=== PATIENT | male | born 1980 | race Caucasian/White ===

== ENCOUNTER 2023-08-27 13:34 | Emergency (ER) | payer OTHER, SELFPAY ==
[2023-08-27 13:35] VITALS: BP 159/101
[2023-08-27 15:08] VITALS: BMI 40.5
[2023-08-27 15:13] VITALS: BP 136/82
--- NOTE | 2023-08-27 15:31 | ED.GENMED ---
History of Present Illness
General
Chief Complaint: Blood Pressure Problem
Source: patient
Exam Limitations: none
Time Seen by Provider: 08/27/23 14:58
Nursing documentation reviewed up to this point in time: agreed with
Travel History
Have you had any contact with someone who has COVID-19?: No
Do you have any symptoms of coronavirus? Fever > 100 degrees, chills, cough, shortness of breath, sore throat, loss of taste or smell, muscle aches, or headache?: No
History of Present Illness
History of Present Illness:
43-year-old male with past medical history hypertension, hypothyroidism who presents to the emergency room for evaluation of left upper lip tingling. Patient reports onset of symptoms 3 days ago and they have been constant since that time although
the sensation seems to wax and wane. No clear triggering or relieving factors noted. He reports he has had associated increased blood pressure over the past few days. He says that he saw his primary doctor who referred him to the emergency
department to be assessed. He denies any headache. Denies any weakness in the face or the extremities. No numbness or weakness in the extremities. Denies any pain in his neck. No change in his vision or speech. He denies any other complaints
including chest pain, shortness of breath, abdominal pain.
Past History
Past History
ED Past Medical History: Other (Chronic back pain, tension headaches, hypothyroidism, previous Lyme's disease treated)
ED Past Surgical History: None
PSI?: No
Social History
Tobacco: Former smoker
Alcohol: None
Personal: Single
Living: with family
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
Family History
Family History: Hypertension and Early CAD
Review of Systems
Review of Systems
All Other Systems: ROS reviewed and negative except as documented in HPI and ROS
Constitutional: Denies fever or chills
EENT: Denies sore throat or runny nose
Respiratory: Denies cough or trouble breathing
Cardiac: Denies chest pain or palpitations
ABD/GI: Denies abdominal pain, nausea or vomiting
: Denies flank pain
Musculoskeletal: Denies neck pain or back pain
Neurological: Reports other (Left upper lip tingling/paresthesia); Denies dizzy, headache, weakness or numbness
Phy Exam
Physical Exam
Physical Exam:
General: Awake, alert; no acute distress
Head: Normocephalic, atraumatic
Eyes: Conjunctiva normal, EOMI, pupils equal round reactive to light bilaterally, visual delgadillo intact
Throat: Airway intact, handling secretions
Neck: Trachea midline, supple without meningismus
Lungs: Clear to auscultation bilaterally, no wheezing, rales, rhonchi
Heart: Regular rate and rhythm, no murmurs, gallops, or rubs
Abd: Soft, non distended, nontender
Neuro: Cranial nerves intact 2 through 12�notably he has no objective sensory deficit in the face; speech is fluid with no dysarthria or aphasia; no limb ataxia; motor and sensory function is intact and symmetric proximally and distally in the upper
and lower extremities
Skin: no rash
Extremities: No edema in extremities, warm and well-perfused
Scores
NIH Stroke Score
Level of Consciousness: 0 - Alert
LOC Questions: 0-Answers both correctly
LOC Commands: 0-Performs both correctly
Best Horizontal Gaze: 0-Normal
Visual Delgadillo: 0=Normal, no visual loss
Facial Palsy: 0=Normal, symmetrical
Motor - Right Arm: 0=No drift 10 seconds
Motor - Left Arm: 0=No drift 10 seconds
Motor - Right Le-No drift 5 seconds
Motor - Left Le-No drift 5 seconds
Limb Ataxia: 0-Absent
Sensation: 0-Normal
Best Language: 0-No aphasia
Dysarthria: 0-Normal
Extinction and Inattention: 0-No abnormality
Total Score:: 0
Heart Failure Risk
Heart Failure Risk Score: Not Applicable
Heart Score for Chest Pain Patients
STEMI patient?: Not applicable
Withdrawal Assessment of Alcohol
Withdrawal Assessment Completed?: Not applicable
Course
Orders/Labs/Results
Orders:
Orders
08/27/23 14:59
Electrocardiogram (*1) Urgent
Reason for Study: Hypertension, Benign
EKG- Treatment ONCE
08/27/23 15:15
Complete Blood Count/With Diff Urgent
Comprehensive Metabolic Panel Urgent
Free T4 Urgent
TSH Reflex To Free T4 Urgent
Comment: ADD ON
08/27/23 15:28
CT Head W/o Iv Contrast Urgent
Comment:
Reason For Exam: left facial numbness
08/27/23 15:30
Add On- LAB Urgent
Tests Added?: TSH reflex to free T4
Abnormal Lab Results
08/27/23
15:15
Sodium 128 L mmol/L
(135-145)
TSH (Reflex) 4.85 H uIU/ml
(0.47-4.68)
08/27/23 15:15
08/27/23 15:15
Vital Signs
Initial and Last Documented VS:
Initial Vital Signs
Temp Pulse Resp BP Pulse Ox
36.7 C 76 18 159/101 99
08/27/23 13:35 08/27/23 13:35 08/27/23 13:35 08/27/23 13:35 08/27/23 13:35
Last Documented Vital Signs
Temp Pulse Resp BP Pulse Ox
36.7 C 75 25 135/86 94
08/27/23 13:35 08/27/23 16:45 08/27/23 16:45 08/27/23 16:30 08/27/23 16:45
MDM/Problems Addressed
Differential Diagnosis Includes:
Peripheral neuropathy, trigeminal neuralgia, angioedema, electrolyte derangement, less likely TIA/CVA based on distribution of symptoms
MDM/Problems Addressed:
43-year-old male presents for rather localized left upper lip/facial paresthesias over the past 3 days waxing waning intensity. No other associated neurologic signs or symptoms. He has been hypertensive had blood pressure medication increased by
his primary doctor but was also referred to the emergency room to be assessed. He was hypertensive in triage normalized by my assessment. Rest of vitals normal. Exam as above�he notably has no neurologic deficits on exam including no objective
sensory deficit in the area of concern. Labs sent off including CBC and CMP. Will check thyroid studies. He says that his primary doctor referred him to ED for CT head with concern for CVA/TIA�his clinical presentation is really inconsistent with
TIA/CVA but will check CT head in abundance of caution. Monitor closely reassess after the above.
Chronic conditions affecting care:
Hypertension
Acute Exacerbation and/or Progression of Chronic Illness:
Acutely hypertensive
*Radiology
Radiology exam reviewed: radiology read reviewed
*Pulse Oximetry
Patient hypoxic: no
*EKG
Interpreted by ED Provider?: Yes
Heart Rate: 66
Rate: normal
Rhythm: sinus
[place]: normal axis
Interval: normal interval
QRS Pattern: normal QRS
Ischemia: no ischemia
*Critical Care Note
Total Time (30-74mins, 75-104mins- exclusive of procedures): Not Applicable
Data Reviewed
Source: patient
ED Attending Note
-
Portions of this chart may have been created with voice recognition software.� Occasional wrong word or��sound alike� substitutions may have occurred due to the inherent limitations of voice recognition software.
Discharge Plan
Departure
Patient with high blood pressure during this ER visit?: Yes
Discharge Problem:
Facial paresthesia
Instructions: Paresthesia (DC)
Prescriptions:
No Action
levothyroxine 175 MCG tablet
175 mcg PO DAILY
valsartan 160 MG tablet
160 mg PO DAILY
docosahexaenoic acid-epa 1 CAP capsule
1 cap PO BID
prednisone 50 mg tablet
50 mg PO DAILY Qty: 4 0RF
Referrals:
Brandan Simmons MD [Active] - Call in 1-3 days for appt (Neurology)
Nette Taylor CRNP [Family Provider] -
Activity Restrictions/Additional Instructions:
Thank you for visiting the Emergency Department at [facility].
1. Please schedule a follow up appointment as directed. Call first thing tomorrow morning to make an appointment.
2. If indicated, please take your medications as instructed and indicated on discharge paperwork.
3. If any of your symptoms do not improve, or persist, or become more severe within 6-12 hours, please return to the emergency department for further care.
4. Please return to the emergency department if you develop a headache, neck pain/stiffness, fever greater than 100.4F, chest pain, shortness of breath, persistent nausea, vomiting, slurred speech, difficulty walking, numbness/tingling, weakness,
signs of infection or any other symptoms that are worrisome to you.
Please call [phone] if you have any questions.
Interventions
Interventions:
*Risk Screen - Suicide Last Done: 08/27/23 15:08
*General Assessment Last Done: 08/27/23 15:08
*Neglect/Abuse Screening Last Done: 08/27/23 15:08
ED- Fall Risk Assessment Last Done: 08/27/23 15:08
*ED COVID-19 Vaccine History Last Done: 08/27/23 15:00
ED- Cardiac Assessment Last Done: 08/27/23 15:13
ED- Neurological Assessment Last Done: 08/27/23 15:08
ED- Pulmonary Assessment Last Done: 08/27/23 15:08
[2023-08-27 15:42] LABS: % Basophils 0.2 % (0-2); % Immature Granulocytes 0.2 % (0-0.5); % Lymphocytes 26.8 % (20.5-51.1); % Monocytes 6.7 % (1.7-9.3); % Neutrophils 64.1 % (42.2-75.2); Absolute Eosinophils 0.2 10^3/uL (0-0.7); Absolute Lymphocytes 2.3 10^3/uL (1.2-3.4); Absolute Monocytes 0.6 10^3/uL (0.1-0.6); Absolute Neutrophils 5.5 10^3/uL (1.4-6.5); Hemoglobin 14.5 g/dL (13.0-18.0); Mean Corp Hgb Conc. 35.4 g/dL (33.0-37.0); Mean Corpuscular Hgb 30.1 pg (27.0-31.0); Mean Corpuscular Volume 85.2 fL (80.0-94.0); Mean Platelet Volume 9.8 fL (7.4-10.4); Nucleated Red Blood Cells % 0 % (-); Platelet Count 186 10^3/uL (130-400); Red Blood Cell Count 4.81 10^6/uL (4.70-6.10); Red Cell Dist. Width 12.1 % (11.5-14.5); White Blood Cell Count 8.7 10^3/uL (4.8-10.8)
[2023-08-27 15:49] LABS: ALT (SGPT) 15 U/L (0-50); AST (SGOT) 26 U/L (17-59); Albumin 4.6 g/dl (3.5-5.0); Alkaline Phosphatase 70 U/L (38-126); Blood Urea Nitrogen 15 mg/dl (9-20); Calcium 9.5 mg/dl (8.4-10.2); Carbon Dioxide 28 mmol/L (22-30); Chloride 103 mmol/L (98-107); Estimated Creatinine Clearance 109 ml/min; Glucose 90 mg/dl (70-99); Potassium 4.1 mmol/L (3.5-5.1); Sodium 128 mmol/L (135-145); Total Bilirubin 0.4 mg/dl (0.2-1.3); Total Protein 7.6 g/dl (6.3-8.2); eGFR > 60.00
[2023-08-27 16:00] VITALS: BP 117/64
[2023-08-27 16:30] VITALS: BP 135/86
[2023-08-27 16:42] LABS: TSH Reflex To Free T4 4.85 uIU/ml (0.47-4.68)
[2023-08-27 17:00] VITALS: BP 135/76
[2023-08-27 17:12] LABS: Free T4 1.05 ng/dl (0.78-2.19)
[2023-08-27 18:00] VITALS: BP 127/79
[2023-08-27] MEDS: NSS 1000 IV (18:13)
== END 2023-08-27 19:13 | disposition home or self-care (01) ==
LOC: EMR 13:34
PROVIDERS: EMERGENCY PHYSICIAN Emergency Medicine; FAMILY PHYSICIAN Nurse Practitioner Adult Health
DX: R20.2 Paresthesia of skin (principal); I10 Essential (primary) hypertension; E03.9 Hypothyroidism, unspecified; G89.29 Other chronic pain; Z82.49 Family history of ischemic heart disease and other diseases of the circulatory system; Z87.891 Personal history of nicotine dependence
CPT/HCPCS: 99284; 96360; 70450; 80053; 84439; 84443; 85025; 93005

== ENCOUNTER 2023-12-11 05:09 | Emergency (ER) | payer OTHER, SELFPAY ==
[2023-12-11 05:11] VITALS: BP 155/104
[2023-12-11 05:28] VITALS: BMI 40.1
[2023-12-11 05:50] LABS: % Basophils 0.5 % (0-2); % Eosinophils 2.8 % (0-6); % Immature Granulocytes 0.3 % (0-0.5); % Lymphocytes 28.9 % (20.5-51.1); % Monocytes 8.3 % (1.7-9.3); % Neutrophils 59.2 % (42.2-75.2); Absolute Eosinophils 0.2 10^3/uL (0-0.7); Absolute Lymphocytes 1.9 10^3/uL (1.2-3.4); Absolute Monocytes 0.5 10^3/uL (0.1-0.6); Absolute Neutrophils 3.9 10^3/uL (1.4-6.5); Hemoglobin 14.1 g/dL (13.0-18.0); Mean Corp Hgb Conc. 36.2 g/dL (33.0-37.0); Mean Corpuscular Hgb 29.6 pg (27.0-31.0); Mean Corpuscular Volume 81.9 fL (80.0-94.0); Mean Platelet Volume 9.2 fL (7.4-10.4); Nucleated Red Blood Cells % 0 % (-); Platelet Count 174 10^3/uL (130-400); Red Blood Cell Count 4.76 10^6/uL (4.70-6.10); Red Cell Dist. Width 11.9 % (11.5-14.5); White Blood Cell Count 6.5 10^3/uL (4.8-10.8)
[2023-12-11 06:18] LABS: Troponin I < 0.012 ng/ml
[2023-12-11 06:24] LABS: ALT (SGPT) 22 U/L (0-50); AST (SGOT) 32 U/L (17-59); Albumin 4.4 g/dl (3.5-5.0); Alkaline Phosphatase 68 U/L (38-126); Blood Urea Nitrogen 14 mg/dl (9-20); Calcium 9.5 mg/dl (8.4-10.2); Carbon Dioxide 25 mmol/L (22-30); Chloride 106 mmol/L (98-107); Estimated Creatinine Clearance > 125 ml/min; Glucose 97 mg/dl (70-99); Potassium 4.2 mmol/L (3.5-5.1); Sodium 139 mmol/L (135-145); Total Bilirubin 0.5 mg/dl (0.2-1.3); Total Protein 7.4 g/dl (6.3-8.2); eGFR > 60.00
--- NOTE | 2023-12-11 06:40 | ED.GENMED ---
History of Present Illness
General
Chief Complaint: Cardiac Symptoms
Source: patient
Time Seen by Provider: 12/11/23 06:34
Travel History
Have you had any contact with someone who has COVID-19?: No
Do you have any symptoms of coronavirus? Fever > 100 degrees, chills, cough, shortness of breath, sore throat, loss of taste or smell, muscle aches, or headache?: No
History of Present Illness
History of Present Illness:
43-year-old male presents to the emergency room complaining of a abnormal sensation in his chest. Patient was brushing his teeth around 4 AM when he had a sensation that there was a wet shirt stuck to his chest. He states this is the only way he
can describe the sensation. It did not radiate. He did not have associated shortness of breath, diaphoresis or any crushing chest pain or pressure on his chest. The episode lasted for 45 minutes. He endorses increasing exercise recently
including some weightlifting. He runs a mile and a half on the treadmill and also uses an elliptical. He has no chest discomfort or difficulty while exercising. The sensation he had earlier is gone. Patient endorses anxiety. He states he had a
panic attack when thinking about the sensation he had in his chest.
Past History
Past History
ED Past Medical History: Other (Chronic back pain, tension headaches, hypothyroidism, previous Lyme's disease treated)
ED Past Surgical History: None
PSI?: No
Social History
Tobacco: Former smoker
Alcohol: None
Personal: Single
Living: with family
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
Family History
Family History: Hypertension and Early CAD
Phy Exam
Physical Exam
Physical Exam:
General: Awake, Alert, Oriented X3. No acute distress. High BMI
Vitals: unremarkable
Head: Atraumatic
Eyes: Pupils equal, EOMI
Throat: Airway intact, no exudates
Neck: Trachea midline
Lungs: Clear and equal b/l
Heart: Regular rate, no murmurs
Abd: Soft, Nontender, No pulsatile mass
Neuro: Nonfocal
Skin: Warm, dry, no rash
Extremities: pulses equal b/l, no edema
Course
Orders/Labs/Results
Orders:
Orders
12/11/23 05:13
Electrocardiogram (*1) Urgent
Reason for Study: Chest Pain
EKG- Treatment ONCE
12/11/23 05:43
CMP [Comprehensive Metabolic Panel] Urgent
Complete Blood Count/With Diff Urgent
Troponin I Urgent
12/11/23 05:43
12/11/23 05:43
Vital Signs
Initial and Last Documented VS:
Initial Vital Signs
Temp Pulse Resp BP Pulse Ox
97.8 F 70 22 155/104 97
12/11/23 05:11 12/11/23 05:11 12/11/23 05:11 12/11/23 05:11 12/11/23 05:11
Last Documented Vital Signs
Temp Pulse Resp BP Pulse Ox
97.8 F 70 22 155/104 97
12/11/23 05:11 12/11/23 05:11 12/11/23 05:11 12/11/23 05:11 12/11/23 05:11
MDM/Problems Addressed
Differential Diagnosis Includes:
Costochondritis, ACS, reflux, anxiety
MDM/Problems Addressed:
Patient presents with a vague nonspecific chest discomfort. EKG is normal. First troponin is normal. The description of his discomfort does not really sound cardiac in nature. Patient able to perform exercise without any chest discomfort.
Suspect noncardiac chest pain. Patient stable for discharge home.
*Pulse Oximetry
Patient hypoxic: no
*EKG
Interpreted by ED Provider?: Yes
Interpretation: normal
Heart Rate: 71
Rate: normal
Rhythm: sinus
[place]: normal axis
Interval: normal interval
QRS Pattern: normal QRS
Ischemia: no ischemia
*[employer] Supervisor Interpretation
Rate: normal
Interpretation: normal
Rhythm: sinus
*Critical Care Note
Total Time (30-74mins, 75-104mins- exclusive of procedures): Not Applicable
ED Attending Note
-
Portions of this chart may have been created with voice recognition software.� Occasional wrong word or��sound alike� substitutions may have occurred due to the inherent limitations of voice recognition software.
Discharge Plan
Departure
Patient Disposition: Home (Routine Discharge)
Date of Disposition: 12/11/23
Time of Disposition: 06:45
Patient with high blood pressure during this ER visit?: Yes
Condition: Good
Discharge Problem:
Chest pain, non-cardiac
Instructions: Chest Pain PCP Follow Up, BLOOD PRESSURE
Prescriptions:
No Action
valsartan 160 MG tablet
160 mg PO DAILY
levothyroxine 200 mcg Tablet
200 mcg PO DAILY
pantoprazole 40 mg Tablet,Delayed Release (Dr/Ec)
40 mg PO DAILY
hydrochlorothiazide 12.5 mg Capsule
12.5 mg PO DAILY
Referrals:
Clay Gerard DO [Family Provider] -
Interventions
Interventions:
*Risk Screen - Suicide Last Done: 12/11/23 05:11
*General Assessment Last Done: 12/11/23 07:00
*Neglect/Abuse Screening Last Done: 12/11/23 05:11
ED- Fall Risk Assessment Last Done: 12/11/23 05:28
*Nursing Disposition Last Done: 12/11/23 07:00
ED- Cardiac Assessment Last Done: 12/11/23 05:28
ED- Pulmonary Assessment Last Done: 12/11/23 05:28
Discharge Date and Time
Discharge Date/Time: 12/11/23 07:00
Print Language: SLOVENIAN
== END 2023-12-11 07:00 | disposition home or self-care (01) ==
LOC: EMR 05:09
PROVIDERS: Student in an Organized Health Care Education/Training Program; EMERGENCY PHYSICIAN Emergency Medicine; FAMILY PHYSICIAN Family Medicine
DX: R07.89 Other chest pain (principal); E03.9 Hypothyroidism, unspecified; F41.0 Panic disorder [episodic paroxysmal anxiety]; G89.29 Other chronic pain; Z82.49 Family history of ischemic heart disease and other diseases of the circulatory system; Z87.891 Personal history of nicotine dependence
CPT/HCPCS: 99283; 80053; 84484; 85025; 93005

== ENCOUNTER 2024-02-22 11:46 | Emergency (ER) | payer OTHER, SELFPAY ==
[2024-02-22 11:53] VITALS: BP 152/99
[2024-02-22 12:03] VITALS: BMI 39.7
[2024-02-22 12:09] VITALS: BP 142/85
--- NOTE | 2024-02-22 12:25 | ED.GENMED ---
History of Present Illness
General
Chief Complaint: Musculo-Skeletal Complaint
Source: patient
Time Seen by Provider: 02/22/24 12:10
History of Present Illness
History of Present Illness:
44yoM with a history of hypertension and hypothyroidism presenting for evaluation of numbness. Patient started to have pressure in his neck and left hand tingling about 1-2 months ago. He was seen by his PCP and had cervical spine x-rays on 02/06/24
which were normal. He underwent EMG testing and was diagnosed with carpal tunnel. He was also told that he had a pinched nerve in his neck. Over the past week, he has had 3 separate episodes of numbness. He reports having numbness throughout his
entire head that lasts about a minute before resolving. Nothing seems to trigger these symptoms. He had an episode again this morning so he decided to come to the ED. He has an appointment for an MRI brain w/wo contrast and MRI cervical spine
scheduled in March. He admits to being under a lot of stress recently.
Past History
Past History
ED Past Medical History: Other (Chronic back pain, tension headaches, hypothyroidism, previous Lyme's disease treated)
ED Past Surgical History: None
PSI?: No
Social History
Tobacco: Former smoker
Alcohol: None
Personal: Single
Living: with family
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
Family History
Family History: Hypertension and Early CAD
Phy Exam
General Physical Exam
General Presentation: well appearing and no apparent distress
General age: appears stated age
General Skin: warm and dry
General Habitus: normal
General Mental: alert
Eye Exam
Eye Exam: PERRL
Cardiovascular Exam
Cardiovascular Exam: regular rate/rhythm, no edema and no murmur
Pulmonary Exam
Pulmonary Exam: lungs clear, no respiratory distress, no crackles and no wheezing
Neurological Exam
Neurological Exam: alert and no motor deficits
[place] Coma Scale
Eye Opening: Spontaneous
Verbal Response: Oriented
Motor Response: Obeys Commands
GCS Total Score: 15
Skin Exam
Skin Exam: normal color and warm/dry
Psychiatric Exam
Psychiatric Exam: normal mood/affect
Course
Orders/Labs/Results
Orders:
Orders
02/22/24 12:26
Cardiac Monitoring- Treatment ONCE
02/22/24 12:27
Electrocardiogram (*1) Urgent
Reason for Study: Fatigue / Weakness
CT Head W/o Iv Contrast Urgent
Comment:
Reason For Exam: Intermittent numbness of head
EKG- Treatment ONCE
02/22/24 12:42
Complete Blood Count/With Diff Urgent
Comprehensive Metabolic Panel Urgent
Troponin I Urgent
Abnormal Lab Results
02/22/24
12:42
RBC 4.67 L 10^6/uL
(4.70-6.10)
Hct 38.6 L %
(39.0-52.0)
Absolute Monos (auto) 0.7 H 10^3/uL
(0.1-0.6)
02/22/24 12:42
02/22/24 12:42
Vital Signs
Initial and Last Documented VS:
Initial Vital Signs
Temp Pulse Resp BP Pulse Ox
98.0 F 79 16 152/99 98
02/22/24 11:53 02/22/24 11:53 02/22/24 11:53 02/22/24 11:53 02/22/24 11:53
Last Documented Vital Signs
Temp Pulse Resp BP Pulse Ox
98.0 F 72 20 136/55 96
02/22/24 11:53 02/22/24 13:45 02/22/24 13:15 02/22/24 13:01 02/22/24 13:45
MDM/Problems Addressed
Differential Diagnosis Includes:
44yoM here with intermittent episodes of head numbness over the past week. Also having L arm paresthesias for several months and has underwent outpatient workup with EMG. No current symptoms. He is afebrile and hemodynamically stable. He is well
appearing in no distress. Exam is reassuring. Differential diagnosis includes but is not limited to: electrolyte abnormality, cervical radiculopathy, doubt CVA
Initial ED plan: Check cardiac labs, EKG, and CT head.
*EKG
Interpreted by ED Provider?: Yes
EKG Intrepretation Date: 02/22/24
Heart Rate: 65
Rate: normal
Rhythm: sinus
[place]: normal axis
Interval: normal interval
QRS Pattern: normal QRS
Ischemia: no ischemia
*Critical Care Note
Total Time (30-74mins, 75-104mins- exclusive of procedures): Not Applicable
Update Note
Update Note:
EKG shows NSR without ischemic changes or ectopy. Troponin WNL. Remainder of labs unremarkable including normal electrolytes, renal function, and glucose. CT head is negative for acute findings. No indication for hospitalization. He has an appt in
March for an MRI brain/cervical spine. He was advised to f/u closely with his PCP. ED return precautions discussed. He was discharged in stable condition.
ED Attending Note
-
Portions of this chart may have been created with voice recognition software.� Occasional wrong word or��sound alike� substitutions may have occurred due to the inherent limitations of voice recognition software.
Discharge Plan
Departure
Patient Disposition: Home (Routine Discharge)
Date of Disposition: 02/22/24
Time of Disposition: 13:56
Patient with high blood pressure during this ER visit?: Yes
Discharge Problem:
Paresthesia
Instructions: Paresthesia (DC)
Prescriptions:
No Action
valsartan 160 MG tablet
160 mg PO DAILY
levothyroxine 200 mcg Tablet
200 mcg PO DAILY
pantoprazole 40 mg Tablet,Delayed Release (Dr/Ec)
40 mg PO DAILY
hydrochlorothiazide 12.5 mg Capsule
12.5 mg PO DAILY
Referrals:
Clay Gerard DO [Family Provider] -
Activity Restrictions/Additional Instructions:
Please follow-up with your family doctor. Return to the ER with any new or worsening symptoms.
Interventions
Interventions:
*Risk Screen - Suicide Last Done: 02/22/24 12:03
*General Assessment Last Done: 02/22/24 12:03
*Neglect/Abuse Screening Last Done: 02/22/24 12:03
*Nursing Disposition Last Done: 02/22/24 14:09
ED-Musculoskeletal Assessment Last Done: 02/22/24 12:06
Discharge Date and Time
Discharge Date/Time: 02/22/24 14:09
Print Language: ARGENTINE
[2024-02-22 13:01] VITALS: BP 136/55
[2024-02-22 13:02] LABS: % Basophils 0.4 % (0-2); % Eosinophils 2.2 % (0-6); % Immature Granulocytes 0.2 % (0-0.5); % Lymphocytes 22.4 % (20.5-51.1); % Monocytes 8.5 % (1.7-9.3); % Neutrophils 66.3 % (42.2-75.2); Absolute Eosinophils 0.2 10^3/uL (0-0.7); Absolute Lymphocytes 1.8 10^3/uL (1.2-3.4); Absolute Monocytes 0.7 10^3/uL (0.1-0.6); Absolute Neutrophils 5.4 10^3/uL (1.4-6.5); Hematocrit 38.6 % (39.0-52.0); Hemoglobin 13.9 g/dL (13.0-18.0); Mean Corpuscular Hgb 29.8 pg (27.0-31.0); Mean Corpuscular Volume 82.7 fL (80.0-94.0); Mean Platelet Volume 9.5 fL (7.4-10.4); Nucleated Red Blood Cells % 0 % (-); Platelet Count 167 10^3/uL (130-400); Red Blood Cell Count 4.67 10^6/uL (4.70-6.10); Red Cell Dist. Width 12.8 % (11.5-14.5); White Blood Cell Count 8.1 10^3/uL (4.8-10.8)
[2024-02-22 13:08] LABS: ALT (SGPT) 17 U/L (0-50); AST (SGOT) 24 U/L (17-59); Albumin 4.3 g/dl (3.5-5.0); Alkaline Phosphatase 60 U/L (38-126); Blood Urea Nitrogen 14 mg/dl (9-20); Calcium 9.5 mg/dl (8.4-10.2); Carbon Dioxide 27 mmol/L (22-30); Chloride 104 mmol/L (98-107); Estimated Creatinine Clearance > 125 ml/min; Glucose 93 mg/dl (70-99); Potassium 4.3 mmol/L (3.5-5.1); Sodium 141 mmol/L (135-145); Total Bilirubin 0.5 mg/dl (0.2-1.3); Total Protein 6.8 g/dl (6.3-8.2); eGFR > 60.00
[2024-02-22 13:20] LABS: Troponin I < 0.012 ng/ml
== END 2024-02-22 14:09 | disposition home or self-care (01) ==
LOC: EMR 11:46
PROVIDERS: Physician Assistant; EMERGENCY PHYSICIAN Emergency Medicine; FAMILY PHYSICIAN Family Medicine
DX: R20.2 Paresthesia of skin (principal); R53.83 Other fatigue; R20.0 Anesthesia of skin; R53.1 Weakness; G58.8 Other specified mononeuropathies; I10 Essential (primary) hypertension; E03.9 Hypothyroidism, unspecified; G89.29 Other chronic pain; Z87.891 Personal history of nicotine dependence
CPT/HCPCS: 99284; 70450; 80053; 84484; 85025; 93005

== ENCOUNTER → 2024-08-28 12:36 | Outpatient (REF) | payer OTHER, SELFPAY | LOC: RCS 12:36 | PROVIDERS: ATTENDING PHYSICIAN Nurse Practitioner Gerontology; FAMILY PHYSICIAN Nurse Practitioner Adult Health | DX: R07.9 Chest pain, unspecified (principal) | CPT/HCPCS: 93017 ==

== ENCOUNTER → 2024-09-07 08:53 | Outpatient (REF) | payer OTHER, SELFPAY | LOC: HWRCS 08:53 | PROVIDERS: ATTENDING PHYSICIAN Nurse Practitioner Gerontology; FAMILY PHYSICIAN Family Medicine | DX: R07.9 Chest pain, unspecified (principal) | CPT/HCPCS: 93306 ==

== ENCOUNTER 2025-01-14 18:11 | Emergency (ER) | payer OTHER, SELFPAY ==
[2025-01-14 18:24] VITALS: BP 140/98
[2025-01-14 18:39] LABS: Hematocrit 38.3 % (39.0-52.0); Hemoglobin 13.6 g/dL (13.0-18.0); Mean Corp Hgb Conc. 35.5 g/dL (33.0-37.0); Mean Corpuscular Volume 85.1 fL (80.0-94.0); Nucleated Red Blood Cells % 0 % (-); Platelet Count 174 10^3/uL (130-400); Red Cell Dist. Width 12.3 % (11.5-14.5)
[2025-01-14 19:01] LABS: ALT (SGPT) 22 U/L (0-50); AST (SGOT) 28 U/L (17-59); Albumin 4.8 g/dl (3.5-5.0); Alkaline Phosphatase 59 U/L (38-126); Blood Urea Nitrogen 17 mg/dl (9-20); Calcium 9.7 mg/dl (8.4-10.2); Carbon Dioxide 26 mmol/L (22-30); Chloride 104 mmol/L (98-107); Glucose 99 mg/dl (70-99); Lipase 79 U/L (23-300); Potassium 4.0 mmol/L (3.5-5.1); Sodium 137 mmol/L (135-145); Total Protein 7.7 g/dl (6.3-8.2); eGFR > 60.00
--- NOTE | 2025-01-14 19:26 | ED.GENMED ---
History of Present Illness
General
Chief Complaint: Abdominal Pain
Source: patient
Exam Limitations: none
Time Seen by Provider: 01/14/25 19:25
Nursing documentation reviewed up to this point in time: agreed with
History of Present Illness
History of Present Illness:
The patient is a 44-year-old man who reports about 1 week of mid upper abdominal pain. Patient states that he feels a ' cold sensation' in his throat. Patient was started on pantoprazole once a day by his primary care doctor about a week ago but
states that it has not helped with his pain. He denies nausea, vomiting, and diarrhea. Patient has had mild constipation. He denies past surgical history. Patient states the pain is constant. Nothing makes it better or worse.
Past History
Past History
ED Past Medical History: Other (Chronic back pain, tension headaches, hypothyroidism, previous Lyme's disease treated)
ED Past Surgical History: None
PSI?: No
Social History
Tobacco: Former smoker
Alcohol: None
Drug: Other
Personal: Single
Living: with family
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
Family History
Family History: Hypertension and Early CAD
Review of Systems
Review of Systems
Allergies reviewed?: Yes
All Other Systems: ROS reviewed and negative except as documented in HPI and ROS
Constitutional: Reports no symptoms
EENT: Reports other (Sensation in his throat, burning and sometimes cold sensation)
Respiratory: Reports no symptoms
Cardiac: Reports no symptoms
ABD/GI: Reports abdominal pain and constipated
: Reports no symptoms
Musculoskeletal: Reports no symptoms
Skin: Reports no symptoms
Neurological: Reports no symptoms
Endocrine: Reports no symptoms
Hematologic/Lymphatic: Reports no symptoms
Psychiatric: Reports no symptoms
Phy Exam
Physical Exam
Physical Exam:
Physical Exam
General: no apparent distress, not acutely ill. Well uncomfortable appearing
Neck: supple. no meningeal signs. normal psoterior pharynx
Heart: s1/s2 regular rate and rhythm, no murmur. equal radial pulses.
Lungs: no acute respiratory distress. clear bilaterally
Abdomen: normal bowel sounds. Soft throughout. Mild epigastric tenderness without rebound or guarding. No pulsatile mass
Neuro: alert and oriented. no focal neurological deficits
Skin: no rash
Psychiatric: well kept. interactive and cooperative
Extremities: no edema. no calf tenderness. negative homans. good distal pulses
Course
Orders/Labs/Results
Orders:
Orders
01/14/25 18:32
Complete Blood Count/With Diff Urgent
Comprehensive Metabolic Panel Urgent
Lipase Urgent
01/14/25 19:58
US Abdomen Complete/Upper Urgent
Comment:
Reason For Exam: upper abdominal pain
01/14/25 21:01
IV Insert/Care/Rem.- Treatment PRN
Mag Hydrox/Al Hydrox/Simeth [Maalox] 30 ml Phenobarb/Hyoscy/Atropine/Scop [] 10 ml PO NOW
01/14/25 21:04
Mag Hydrox/Al Hydrox/Simeth [Maalox] 30 ml .ROUTE .STK-MED ONE
Phenobarb/Hyoscy/Atropine/Scop [] 10 ml .ROUTE .STK-MED ONE
01/14/25 21:38
CT Abd/pelvis W Iv Cont Urgent
Comment:
Reason For Exam: EPIG PAIN
Abnormal Lab Results
01/14/25
18:32
RBC 4.50 L 10^6/uL
(4.70-6.10)
Hct 38.3 L %
(39.0-52.0)
Absolute Monos (auto) 0.7 H 10^3/uL
(0.1-0.6)
01/14/25 18:32
07/24/25 18:32
Vital Signs
Initial and Last Documented VS:
Initial Vital Signs
Temp Pulse Resp BP Pulse Ox
98.7 F 87 18 140/98 98
01/14/25 18:24 01/14/25 18:24 01/14/25 18:24 01/14/25 18:24 01/14/25 18:24
Last Documented Vital Signs
Temp Pulse Resp BP Pulse Ox
98.7 F 84 19 127/86 97
01/14/25 18:24 01/14/25 20:15 01/14/25 20:15 01/14/25 20:00 01/14/25 20:15
MDM/Problems Addressed
Differential Diagnosis Includes:
Acute gastritis, acute cholecystitis, partial bowel obstruction
MDM/Problems Addressed:
Patient presents with epigastric pain
Acute Exacerbation and/or Progression of Chronic Illness:
Patient is acutely hypertensive but on blood pressure recheck, blood pressure has gone down
*Radiology
Radiology exam reviewed: radiology read reviewed
*Pulse Oximetry
SaO2: 98
Oxygen Mode of Delivery: Room air
Patient hypoxic: no
Comment: 98% on room air
*EKG
Interpreted by ED Provider?: NA
*Milk Pasteurizer Interpretation
Rate: normal
Interpretation: normal
Rhythm: sinus
*Critical Care Note
Total Time (30-74mins, 75-104mins- exclusive of procedures): Not Applicable
Data Reviewed
Review of Other/Old Records Reveals: Testing (Normal cardiac stress test August 2024)
Source: patient
Update Note
Update Note:
Patient remains extremely well and comfortable appearing. He has had no fever, nausea, vomiting or any significant pain. He has normal lab work. Ultrasound shows no acute disease. CT shows no acute disease. I suspect his pain is likely due to a
gastritis/GERD. Carafate will be added to his regiment. Patient reports GI cocktail was helpful with his pain.
ED Attending Note
-
Portions of this chart may have been created with voice recognition software.� Occasional wrong word or��sound alike� substitutions may have occurred due to the inherent limitations of voice recognition software.
Discharge Plan
Departure
Patient Disposition: Home (Routine Discharge)
Date of Disposition: 01/14/25
Time of Disposition: 23:13
Patient with high blood pressure during this ER visit?: Yes
Condition: Good
Covid-19: Not Applicable
Discharge Problem:
Abdominal pain, epigastric
Instructions: Acid Reflux and GERD in Adults (DC)
Prescriptions:
New
sucralfate [Carafate] 100 mg/mL suspension
10 ml PO ACHS 14 Days Qty: 560 0RF
No Action
valsartan 160 MG tablet
160 mg PO DAILY
levothyroxine 200 mcg Tablet
200 mcg PO DAILY
pantoprazole 40 mg Tablet,Delayed Release (Dr/Ec)
40 mg PO DAILY
hydrochlorothiazide 12.5 mg Capsule
12.5 mg PO DAILY
Referrals:
Clay Gerard DO [Family Provider, Family Practice]
Interventions
Interventions:
*Risk Screen - Suicide Last Done: 01/14/25 18:24
*General Assessment Last Done: 01/14/25 18:24
*Neglect/Abuse Screening Last Done: 01/14/25 18:24
[facility]-Xampl[facility]-Efliswewod Assessment Last Done: 01/14/25 19:29
Discharge Date and Time
Print Language: YI
[2025-01-14 19:29] VITALS: BMI 51.6
[2025-01-14 20:00] VITALS: BP 127/86
[2025-01-14] MEDS: MAALOX 30 PO (21:06)
[2025-01-14 21:08] VITALS: BP 159/94
[2025-01-14 23:20] VITALS: BP 157/76
== END 2025-01-14 23:22 | disposition home or self-care (01) ==
LOC: EMR 18:11
PROVIDERS: Student in an Organized Health Care Education/Training Program; EMERGENCY PHYSICIAN Emergency Medicine; FAMILY PHYSICIAN Family Medicine
DX: R10.13 Epigastric pain (principal); E03.9 Hypothyroidism, unspecified; G89.29 Other chronic pain; Z87.891 Personal history of nicotine dependence
CPT/HCPCS: 99284; 74177; 76700; 80053; 83690; 85025; Q9967